=== PATIENT | male | born 1985 | race Caucasian/White ===

== ENCOUNTER 2016-06-20 22:14 | Emergency (ER) | payer OTHER ==
[~2016-06-20] VITALS: Ht 170.2 cm; Wt 61.0 kg
[2016-06-20 22:26] VITALS: BP 129/82
--- NOTE | 2016-06-21 05:28 | ED.ADGEN ---
Past Medical History Past Medical History: Other Additional Past Medical Histor: Rieggers disease Past Surgical History: Other Additional Past Surgical Histo: multiple eye surgeries Alcohol Use: Occasionally Drug Use: None Adult General Chief Complaint Chief Complaint: HEAD INJURY/TRAUMA HPI HPI Patient is a 30 year old man, who presents to the emergency department with complaint of headache after he was struck in the face while jumping on trampoline. Patient states that he was jumping a trampoline with a child, with about 35 pounds, he landed on the trampoline, and the child landed on top of him , with his foot striking the patient in his face. Patient states that he was mowing tearily days, did not lose consciousness. States he felt "numb and tingly ", which is since resolved. Denies any nausea or vomiting, any shortness of breath or chest pain, patient states that he was working in the yard during the day today, and believes that his arms are sore from this activity, but is having no weakness or numbness in any extremity. Patient has been ambulating without issue. Patient has not taken any medications prior to coming to the ED. Patient denies any blurred vision, states that he is having pain in the top of his head. Review of Systems Review of Systems Constitutional: Denies fever or chills. [] Eyes: Denies change in visual acuity. [] HENT: Denies nasal congestion or sore throat. [] Respiratory: Denies cough or shortness of breath. [] Cardiovascular: Denies chest pain or edema. [] GI: Denies abdominal pain, nausea, vomiting, bloody stools or diarrhea. [] : Denies dysuria. [] Musculoskeletal: Denies back pain or joint pain. [] Integument: Denies rash. [] Neurologic: Denies headache, focal weakness or sensory changes. [] Endocrine: Denies polyuria or polydipsia. [] Lymphatic: Denies swollen glands. [] Psychiatric: Denies depression or anxiety. [] Allergies Allergies Allergies Coded Allergies Type Severity Reaction Last Updated Verified Sulfa (Sulfonamide Antibiotics) Allergy Intermediate 06/20/16 Yes Physical Exam Physical Exam Constitutional: Well developed, well nourished, no acute distress, non-toxic appearance. [] HENT: Normocephalic, atraumatic, bilateral external ears normal, oropharynx moist, no oral exudates, nose normal. No hemotympanum, no septal hematoma. Patient with mild swelling of the bridge of the nose. Eyes: PERRLA, EOMI, conjunctiva normal, no discharge. 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 Neck: Normal range of motion, no tenderness, supple, no stridor. [] Cardiovascular:Heart rate regular rhythm, no murmur, S1, S2, no rubs or gallops. [] Lungs & Thorax: Bilateral breath sounds clear to auscultation, no wheezing, rhonchi, rales. [] Abdomen: Bowel sounds normal, soft, no tenderness, no masses, no pulsatile masses. [] Skin: Warm, dry, no erythema, no rash. [] Back: No tenderness, no CVA tenderness. [] Extremities: No tenderness, no cyanosis, no clubbing, ROM intact, no edema. [] Neurologic: Alert and oriented X 3, normal motor function, normal sensory function, no focal deficits noted. [] Psychologic: Affect normal, judgement normal, mood normal. [] Current Patient Data Vital Signs Vital Signs Date Time Temp Pulse Resp B/P Pulse Ox O2 Delivery O2 Flow Rate FiO2 06/20/16 22:26 97.8 93 16 129/82 97 Room Air 97.8 EKG EKG Not indicated. Radiology/Procedures Radiology/Procedures Not indicated. [] Course & Med Decision Making Course & Med Decision Making Pertinent Labs and Imaging studies reviewed. (See chart for details) Patient well-appearing, continues to have mild headache and the crown of his head, but denies other symptoms at this time. I did discuss the utility of imaging, as patient has a normal neurologic examination, with no history of loss of consciousness or other concerning findings. Patient has no neck pain. Patient states that he does not want to have imaging at this time, as he is feeling better. Patient was ambulated in the emergency department, denies any dizziness, or other symptoms at this time. Patient states he is ready to be discharged home at this time. Patient with family at bedside, we did discuss concerning symptoms that would prompt return to the emergency department for additional evaluation. Patient voiced understanding and agreement. Discharged home in stable condition with his family the plan as above. Dragon Disclaimer Dragon Disclaimer This electronic medical record was generated, in whole or in part, using a voice recognition dictation system. Departure Impression: Primary Impression: Head injury Disposition: HOME, SELF-CARE Condition: IMPROVED CANDIDA KOO DO Jun 21, 2016 05:28
== END 2016-06-21 00:17 | disposition home or self-care (01) ==
LOC: ER 22:14
DX: S09.90XA Unspecified injury of head, initial encounter (principal); Z88.2 Allergy status to sulfonamides; W22.8XXA Striking against or struck by other objects, initial encounter; Y93.44 Activity, trampolining; Y92.89 Other specified places as the place of occurrence of the external cause; Y99.8 Other external cause status
CPT/HCPCS: 99281

== ENCOUNTER 2016-10-25 00:32 | Emergency (ER) | payer OTHER ==
[~2016-10-25] VITALS: Ht 172.7 cm; Wt 65.8 kg
[2016-10-25 00:56] LABS: BASO % 0 % (0-3); EOS % 4 % (0-3); LYMPH # 3.1 x10^3/uL (1.0-4.8); LYMPH % 38 % (24-48); MEAN CORPUSCULAR HEMOGLOBIN 32 pg (25-35); MEAN CORPUSCULAR HGB CONC 33 g/dL (31-37); MEAN CORPUSCULAR VOLUME 95 fL (79-100); MONO % 9 % (0-9); NEUT % 50 % (31-73); PLATELET COUNT 228 x10^3/uL (140-400); RED BLOOD COUNT 4.74 x10^6/uL (4.30-5.70); WHITE BLOOD COUNT 8.2 x10^3/uL (4.0-11.0)
[2016-10-25] MEDS ORDERED: IV NORMAL SALINE 1000ML BAG 1,000 ML IV ONE (01:00)
[2016-10-25 01:04] LABS: CALCIUM 8.5 mg/dL (8.5-10.1); CREATININE 0.8 mg/dL (0.7-1.3); GFR 114.3; POTASSIUM 4.2 mmol/L (3.5-5.1)
[2016-10-25 01:10] LABS: ALBUMIN 4.1 g/dL (3.4-5.0); ALBUMIN/GLOBULIN RATIO 1.1 (1.0-1.7); TOTAL BILIRUBIN 0.3 mg/dL (0.2-1.0)
[2016-10-25 01:20] VITALS: BP 118/85
[2016-10-25 01:23] LABS: BILIRUBIN,URINE NEGATIVE (NEG); GLUCOSE,URINE NEGATIVE (NEG); NITRITE,URINE NEGATIVE (NEG); PROTEIN,URINE NEGATIVE (NEG-TRACE); UROBILINOGEN,URINE 0.2 mg/dL (0.2 mg/dL)
[2016-10-25 01:29] LABS: BARBITURATES NEG (NEG); BENZODIAZEPINES NEG (NEG); CANNABINOIDS NEG (NEG); COCAINE NEG (NEG); METHADONE NEG (NEG); OPIATES POS (NEG); PHENCYCLIDINE NEG (NEG)
[2016-10-25 01:41] LABS: BACTERIA,URINE 0 /HPF (0-FEW); RBC,URINE 0 /HPF (0-2); SQUAMOUS EPITHELIAL CELL,UR FEW /LPF; WBC,URINE OCC /HPF (0-4)
--- NOTE | 2016-10-25 01:43 | PHYS DOC ---
Past Medical History Past Medical History: Other Additional Past Medical Histor: Rieggers disease Past Surgical History: Other Additional Past Surgical Histo: multiple eye surgeries Alcohol Use: Heavy Drug Use: None Adult General Chief Complaint Chief Complaint: ALTERED MENTAL STATUS HPI HPI Patient is a 30 year old gentleman who is brought in today by EMS secondary to a possible overdose. Per EMS they were called to the patient's sister's home or he was lying on the couch unresponsive and apneic. Upon arrival EMS reports his pulse ox within 40%. They placed a nasal trumpet and him and gave him a total of 4 mg of Narcan with significant improvement in his respiratory status at that time. According to EMS patient had a GCS of 3 when they first arrived. After the Narcan the patient wasn't spine to verbal stimuli patient was moving spontaneously and breathing spontaneously. The patient removed his nasal trumpet after the Narcan. Upon arrival to the ER the patient is alert and awake. He does seem to be somnolent however he does respond to verbal and physical stimuli he does act appropriate otherwise. Patient reports that he does not think he overdosed she just thinks he had a really good time drinking a lot of alcohol and his benzodiazepines which have been prescribed by his primary care physician. Patient denies any narcotic use. Patient denies any fevers shakes chills nausea vomiting diarrhea chest pain terns breath cough cold runny nose. At approximately 1:15 patient certainly may have that we remove his IV and he wanted to leave. I discussed with the patient my concern with him leaving after receiving Narcan waking up. Patient reports that he understands risks of and disability if he leaves prior to completion of evaluation. I discussed with the patient the half-life of Narcan being shorter than most narcotics and my concerns and leaving is at the Narcan wear off and he might become somnolent and stopped breathing again. Patient again avidly denies narcotic use tonight and reports that he took the benzos that he normally takes and then drank a lot of alcohol which is something he usually does. Patient reports that he's had episodes in the past where he stopped breathing secondary to narcotic use in the past and he reports "this is not the first time nor will it be The last time ". Patient is demanding that we remove the catheter from his arm so that he can be discharged home. Patient is currently alert awake oriented to person place time and situation. Patient does answer risks of leaving AGAINST MEDICAL ADVICE including and disability. Patient accepted all risks. Constitutional: Denies fever or chills [] Eyes: Denies change in visual acuity, redness, or eye pain [] All other review systems are negative except as documented in the history of present illness portion. Constitutional: Well developed, well nourished, no acute distress, non-toxic appearance. [] HENT: Normocephalic, atraumatic, bilateral external ears normal, oropharynx moist, no oral exudates, nose normal. [] Eyes: EOMI, conjunctiva normal, no discharge. [] Neck: Normal range of motion, supple, no stridor. [] Cardiovascular:Heart rate regular rhythm Lungs & Thorax: Bilateral breath sounds clear to auscultation [] Abdomen: Bowel sounds normal, soft, no tenderness, no masses, no pulsatile masses. [] Skin: Warm, dry, no erythema Back: No tenderness, no CVA tenderness. [] Extremities: No tenderness, no cyanosis, no clubbing, ROM intact, no edema. [] Neurologic: Alert and oriented X 3, normal motor function, normal sensory function, no focal deficits noted. [] Psychologic: Affect normal, judgement normal, mood normal. [] Assessment and plan this is a 30-year-old gentleman who was brought in by EMS secondary to a overdose. Patient was hypoxic and apneic upon arrival. Patient's alcohol level in the ER was 338. Patient reports that he has a very strong thoughts alcohol and that he wants to be discharged from here and is refusing to stay. Given that the patient has the capacity currently to make decisions and he is currently competent to make decisions I will respect to the economy and allowed to sign out AGAINST MEDICAL ADVICE. I have advised the patient strongly that I would prefer that he stay in the hospital however patient has threatened violence if we keep him. Laboratory Tests Test 10/25/16 00:45 10/25/16 00:49 White Blood Count 8.2 x10^3/uL Red Blood Count 4.74 x10^6/uL Hemoglobin 15.0 g/dL Hematocrit 45.0 % Mean Corpuscular Volume 95 fL Mean Corpuscular Hemoglobin 32 pg Mean Corpuscular Hemoglobin Concent 33 g/dL Red Cell Distribution Width 13.0 % Platelet Count 228 x10^3/uL Neutrophils (%) (Auto) 50 % Lymphocytes (%) (Auto) 38 % Monocytes (%) (Auto) 9 % Eosinophils (%) (Auto) 4 % Basophils (%) (Auto) 0 % Neutrophils # (Auto) 4.0 x10^3uL Lymphocytes # (Auto) 3.1 x10^3/uL Monocytes # (Auto) 0.7 x10^3/uL Eosinophils # (Auto) 0.3 x10^3/uL Basophils # (Auto) 0.0 x10^3/uL Sodium Level 140 mmol/L Potassium Level 4.2 mmol/L Chloride Level 102 mmol/L Carbon Dioxide Level 25 mmol/L Anion Gap 13 Blood Urea Nitrogen 8 mg/dL Creatinine 0.8 mg/dL Estimated GFR (Cockcroft-Gault) 114.3 BUN/Creatinine Ratio 10 Glucose Level 141 mg/dL Calcium Level 8.5 mg/dL Total Bilirubin 0.3 mg/dL Aspartate Amino Transf (AST/SGOT) 278 U/L Alanine Aminotransferase (ALT/SGPT) 196 U/L Alkaline Phosphatase 94 U/L Total Protein 8.0 g/dL Albumin 4.1 g/dL Albumin/Globulin Ratio 1.1 Ethyl Alcohol Level 338 mg/dL Glucose (Fingerstick) 135 mg/dL Current Medications Medications (Trade) Dose Ordered Sig/Carloz Route PRN Reason Start Time Stop Time Status Last Admin Dose Admin Sodium Chloride 1,000 ml @ 1,000 mls/hr 1X ONCE IV 10/25/16 01:00 10/25/16 01:59 10/25/16 01:00 1,000 MLS/HR Current Medications Current Medications Current Medications Medications (Trade) Dose Ordered Sig/Carloz Start Time Stop Time Status Last Admin Dose Admin Sodium Chloride 1,000 ml @ 1,000 mls/hr 1X ONCE 10/25/16 01:00 10/25/16 01:59 10/25/16 01:00 1,000 MLS/HR Allergies Allergies Allergies Coded Allergies Type Severity Reaction Last Updated Verified Sulfa (Sulfonamide Antibiotics) Allergy Intermediate 06/20/16 Yes Current Patient Data Vital Signs Vital Signs Date Time Temp Pulse Resp B/P (MAP) Pulse Ox O2 Delivery O2 Flow Rate FiO2 10/25/16 01:20 104 18 118/85 (96) 97 Room Air 10/25/16 00:41 97.5 97.5 Lab Values Laboratory Tests Test 10/25/16 00:45 10/25/16 00:49 10/25/16 01:15 White Blood Count 8.2 x10^3/uL (4.0-11.0) Red Blood Count 4.74 x10^6/uL (4.30-5.70) Hemoglobin 15.0 g/dL (13.0-17.5) Hematocrit 45.0 % (39.0-53.0) Mean Corpuscular Volume 95 fL (79-100) Mean Corpuscular Hemoglobin 32 pg (25-35) Mean Corpuscular Hemoglobin Concent 33 g/dL (31-37) Red Cell Distribution Width 13.0 % (11.5-14.5) Platelet Count 228 x10^3/uL (140-400) Neutrophils (%) (Auto) 50 % (31-73) Lymphocytes (%) (Auto) 38 % (24-48) Monocytes (%) (Auto) 9 % (0-9) Eosinophils (%) (Auto) 4 % (0-3) H Basophils (%) (Auto) 0 % (0-3) Neutrophils # (Auto) 4.0 x10^3uL (1.8-7.7) Lymphocytes # (Auto) 3.1 x10^3/uL (1.0-4.8) Monocytes # (Auto) 0.7 x10^3/uL (0.0-1.1) Eosinophils # (Auto) 0.3 x10^3/uL (0.0-0.7) Basophils # (Auto) 0.0 x10^3/uL (0.0-0.2) Sodium Level 140 mmol/L (136-145) Potassium Level 4.2 mmol/L (3.5-5.1) Chloride Level 102 mmol/L (98-107) Carbon Dioxide Level 25 mmol/L (21-32) Anion Gap 13 (6-14) Blood Urea Nitrogen 8 mg/dL (8-26) Creatinine 0.8 mg/dL (0.7-1.3) Estimated GFR (Cockcroft-Gault) 114.3 BUN/Creatinine Ratio 10 (6-20) Glucose Level 141 mg/dL (70-99) H Calcium Level 8.5 mg/dL (8.5-10.1) Total Bilirubin 0.3 mg/dL (0.2-1.0) Aspartate Amino Transferase (AST) 278 U/L (15-37) H Alanine Aminotransferase (ALT) 196 U/L (16-63) H Alkaline Phosphatase 94 U/L (46-116) Total Protein 8.0 g/dL (6.4-8.2) Albumin 4.1 g/dL (3.4-5.0) Albumin/Globulin Ratio 1.1 (1.0-1.7) Ethyl Alcohol Level 338 mg/dL (0-10) H Glucose (Fingerstick) 135 mg/dL (70-99) H Urine Collection Type Unknown Urine Color Yellow Urine Clarity Clear Urine pH 5.0 Urine Specific [place] <=1.005 Urine Protein Negative mg/dL (NEG-TRACE) Urine Glucose (UA) Negative mg/dL (NEG) Urine Ketones (Stick) Negative mg/dL (NEG) Urine Blood Negative (NEG) Urine Nitrite Negative (NEG) Urine Bilirubin Negative (NEG) Urine Urobilinogen Dipstick 0.2 mg/dL (0.2 mg/dL) Urine Leukocyte Esterase Negative (NEG) Urine RBC 0 /HPF (0-2) Urine WBC Occ /HPF (0-4) Urine Squamous Epithelial Cells Few /LPF Urine Bacteria 0 /HPF (0-FEW) Urine Hyaline Casts Few /HPF Urine Mucus Slight /LPF Urine Opiates Screen Pos (NEG) Urine Methadone Screen Neg (NEG) Urine Barbiturates Neg (NEG) Urine Phencyclidine Screen Neg (NEG) Urine Amphetamine/Methamphetamine Neg (NEG) Urine Benzodiazepines Screen Neg (NEG) Urine Cocaine Screen Neg (NEG) Urine Cannabinoids Screen Neg (NEG) Urine Ethyl Alcohol Pos (NEG) Laboratory Tests 10/25/16 00:45 Laboratory Tests 10/25/16 00:45 EKG EKG [] Radiology/Procedures Radiology/Procedures [] Course & Med Decision Making Course & Med Decision Making Pertinent Labs and Imaging studies reviewed. (See chart for details) [] Dragon Disclaimer Dragon Disclaimer This electronic medical record was generated, in whole or in part, using a voice recognition dictation system. Departure Departure Impression: Primary Impression: Overdose Additional Impressions: Alcohol intoxication Benzodiazepine overdose Narcotic overdose Disposition: 07 AGAINST MEDICAL ADVICE Condition: STABLE Referrals: NO PCP (PCP) Patient Instructions: Alcohol and Drug Addiction, Finding Treatment, Discharge Against Medical Advice, Narcotic Overdose Problem Qualifiers BARTOLO VAZQUEZ MD Oct 25, 2016 01:43
--- NOTE | 2016-10-25 07:52 | EKG ---
[facility] [address] [place] [address] Test Date: 2016-10-25 Test Time: 01:05:16 Pat Name: ESTELA DOSS Department: Room: Gender: M Receivable Manager: : [id number] Requested By: BARTOLO VAZQUEZ Order Number: [id number] Reading MD: Larry Whitehead Measurements Intervals [place] Rate: 91 P: 64 [place]: 136 QRS: 71 QRSD: 90 T: 62 QT: 374 QTc: 468 Interpretive Statements SINUS RHYTHM Electronically Signed On 10-29-2016 14:03:46 CDT by Larry Whitehead
== END 2016-10-25 01:47 | disposition left against medical advice (07) ==
LOC: ER 00:32
DX: T42.4X1A Poisoning by benzodiazepines, accidental (unintentional), initial encounter (principal); T40.601A Poisoning by unspecified narcotics, accidental (unintentional), initial encounter; F10.129 Alcohol abuse with intoxication, unspecified; Z88.2 Allergy status to sulfonamides; Y90.8 Blood alcohol level of 240 mg/100 ml or more; Y92.89 Other specified places as the place of occurrence of the external cause
CPT/HCPCS: 36415; 80053; 80307; 81001; 82962; 85027; 93005; 99285; G0480; J7030; G0481; G0479